=== PATIENT | male | born 2005 | race Two or more races ===

== ENCOUNTER → 2025-02-27 | Emergency (ER) | payer BC ==
[~2025-02-27] VITALS: Ht 182.9 cm; Wt 72.6 kg
[~2025-02-27] MED LIST: NASAL MIST126 ML NASAL
[2025-02-27 16:04] VITALS: BP 99/68; O2SAT 100
== END | disposition home or self-care (01) ==
LOC: ER 15:46 → EMR PED 15:46
DX: S01.511A Laceration without foreign body of lip, initial encounter (principal); W18.39XA Other fall on same level, initial encounter; Y93.68 Activity, volleyball (beach) (court); Y92.89 Other specified places as the place of occurrence of the external cause; Y99.9 Unspecified external cause status